=== PATIENT | male | born 1945 | race Caucasian/White ===

== ENCOUNTER 2019-01-31 12:35 | Emergency (ER) | payer MEDICARE ==
[2019-01-31] MEDS ORDERED: NS 0.9% 1000 ML** 1,000 ML IV ONE (12:38)
--- NOTE | 2019-01-31 12:42 | ED ---
Neurological HPI - HPI Summary HPI Summary: 73 year old M presenting to [facility] via private car, brought immediately from registration to H1 bed, accompanied by female family friend, and with present on phone providing information, complains of aphasia starting one hour ago at 1130 today 01/31. Last known well 1130. Patient visiting from [place]. Departed [place] around 0930 today for [place]. states patient was fine and able to speak before leaving home in [place]. Patient spoke with on phone at 1130 today and was able to speak. Arrived to friend's home in [place] shortly after 1130. Friend states patient wasn't able to answer her questions. Was aphasic. Understands what is being said to him, can laugh, able to move and ambulate. No weakness in extremities. Symptoms aggravated by nothing. Symptoms alleviated by nothing. Hx pacemaker, hx cholesterolemia per . Was on Warfin but not anymore, is on aspirin 81 mg per . No hx TIA or hx CVA per . Code Mikey 12:33. Dr. Lam at bedside 12:35. Patient to CT 12: 38. - History of Current Complaint Stated Complaint: CODE CHUA Hx Obtained From: Family/Operations Research Engineer - , Other: - friend Onset/Duration: Started hours ago - 1, Still Present Timing: Constant Aggravating: Nothing Alleviating: Nothing - Allergy/Home Medications Allergies/Adverse Reactions: Allergies Allergy/AdvReac Type Severity Reaction Status Date / Time No Known Allergies Allergy Verified 01/31/19 13:12 PMH/Surg Hx/FS Hx/Imm Hx Cardiovascular History: Reports: Hx Hypercholesterolemia, Hx Pacemaker/ICD Neurological History: Denies: Hx CVA, Hx Transient Ischemic Attacks (TIA) - Surgical History Surgery Procedure, Year, and Place: LEVEL 5 CAVEAT: Surgical hx limited d/t aphasia - Family History Family History: LEVEL 5 CAVEAT: FHx limited d/t aphasia - Social History Smoking Status (MU): Unknown if Ever Smoked Review of Systems Negative: Fever, Chills Negative: Erythema Negative: Sore Throat Negative: Chest Pain Negative: Shortness Of Breath, Cough Negative: Abdominal Pain, Vomiting, Nausea Negative: dysuria, hematuria Negative: Myalgia, Edema Negative: Rash Neurological: Negative - Dizziness, Other - aphasia Negative: Weakness All Other Systems Reviewed And Are Negative: Yes Physical Exam - Summary Physical Exam Summary: Constitutional: Well-developed, Well-nourished, Alert. (-) Distressed Skin: Warm, Dry HENT: Normocephalic; Atraumatic Eyes: Conjunctiva normal Neck: Musculoskeletal ROM normal neck. (-) JVD, (-) Stridor, (-) Tracheal deviation Cardio: Rhythm regular, rate normal, Heart sounds normal; Intact distal pulses; The pedal pulses are 2+ and symmetric. Radial pulses are 2+ and symmetric. (-) Murmur Pulmonary/Chest wall: Effort normal. (-) Respiratory distress, (-) Wheezes, (-) Rales Abd: Soft. (-) Tenderness, (-) Distension, (-) Guarding, (-) Rebound Musculoskeletal: (-) Edema Lymph: (-) Cervical adenopathy Neuro: Alert, Oriented x3, Strength normal, Cranial nerves II-XII are grossly intact. (-) Dysmetria, (-) Nystagmus, (-) Ataxia by finger to nose testing, (-) Sensory deficit. Expressively aphasic Psych: Mood and affect Normal GCS: NIH: 3 Triage Information Reviewed: Yes Vital Signs Reviewed: Yes Procedures - Sedation Patient Received Moderate/Deep Sedation with Procedure: No - Intubation Time of Intubation: 13:39 Intubation Method: orotracheal Tube Size (cm): 7.5 Medications: Succinylcholine Breath Sounds after Intubation: equal Intubation Complications: no complications Post Intubation Xray: Yes Progress/Xray Impression: video laryngoscopy - visualized through cords, ETCO2 good waveform Diagnostics - Laboratory Result Diagrams: 01/31/19 12:40 01/31/19 12:40 Lab Statement: Any lab studies that have been ordered have been reviewed, and results considered in the medical decision making process. - Radiology CXR Radiology Interpretation Completed By: Radiologist Summary of Radiographic Findings: NO ACTIVE CARDIOPULMONARY DISEASE. ED physician has reviewed. - CT Brain CT Interpretation Completed By: Radiologist Summary of CT Findings: 1. NO ACUTE INTRACRANIAL PATHOLOGY. 2. 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 3. CHRONIC SMALL VESSEL ISCHEMIC CHANGE. 4. MILD SINUS MUCOSAL INFLAMMATORY DISEASE, WITH AN AIR- FLUID LEVEL IN THE RIGHT FRONTAL SINUS. IN THE CORRECT CLINICAL SETTING, THIS MAY REPRESENT ACUTE SINUSITIS. PRELIMINARY FINDINGS WERE DISCUSSED WITH DR. LAM AT APPROXIMATELY 12:51 PM ON JANUARY 31, 2019. ED physician has reviewed this report. Head CTA CT Interpretation Completed By: Radiologist Summary of CT Findings: 1. THERE IS A LEFT FRONTAL AVM. THE NIDUS MEASURES UP TO 2.1 CM IN SIZE. THE VENOUS DRAINAGE IS PREDOMINANTLY SUPERFICIAL, WITH CALCIFIED PHLEBOLITHS NOTED IN THE NIDUS. THERE IS A 0.5 CM FLOW RELATED ANEURYSM. PNEUMONITIS MAY INVOLVE THE CORTEX INVOLVED IN SPEECH PRODUCTION. 2. ATHEROSCLEROSIS. 3. THERE IS APPROXIMATELY 30% RIGHT INTERNAL CAROTID ARTERY STENOSIS IN 50% LEFT INTERNAL CAROTID ARTERY STENOSIS BY NASCET CRITERIA. 4. 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 PRELIMINARY FINDINGS WERE DISCUSSED WITH DR. LAM AT APPROXIMATELY 1:03 PM ON JANUARY 31, 2019. ED physician has reviewed this report. - EKG 1259 Cardiac Rate: NL - 75 BPM EKG Rhythm: Sinus Rhythm NIH Scale - NIH Scale Level of Consciousness: Alert/Keenly Responsive Ask Patient the Month and His/Her Age: Both Correct Ask Pt to Open/Close Eyes and Supervising Producer/Release Non-Paretic Hand: Both Correctly Best Gaze (Only Horizontal Eye Movement): Normal Visual Field Testing: No Visual Loss Facial Paresis-Pt to Smile & Close Eyes or Grimace Symmetry: Normal/Symmetrical Motor Function - Right Arm: No Drift-Holds 10 Seconds Motor Function - Left Arm: No Drift-Holds 10 Seconds Motor Function - Right Leg: No Drift-Holds 10 Seconds Motor Function - Left Leg: No Drift-Holds 10 Seconds Limb Ataxia-Must be out of Proportion to Weakness Present: Absent Sensory (Use Pinprick to Test Arms/Legs/Trunk/Face): Normal Best Language (Describe Picture, Name Items): Mute/Global Aphasia Dysarthria (Read Several Words): Normal Extinction and Inattention: No Abnormality Total Score: 3 Re-Evaluation - Re-Evaluation First Eval Re-Evaluation Time: 12:51 Change: Unchanged Comment: Dr. Lam reports CT Brain findings Second Eval Re-Evaluation Time: 13:03 Change: Unchanged Comment: Dr. Lam reports Head CTA findings Course/Dx - Course Course Of Treatment: 73 year old M presenting via private car complains of aphasia starting one hour ago at 1130 today 01/31. Last known well 1130. Upon exam, the patient is expressively aphasic. Bloodwork without any significant abnormalities except for RBC 3.97, Hgb 13.5, Hct 30, MCV 100, MCH 34, BUN 27, creatinine 1.71, glucose 102. An EKG shows NSR [address] Brain shows, per radiologist: 1. NO ACUTE INTRACRANIAL PATHOLOGY. 2. 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 3. CHRONIC SMALL VESSEL ISCHEMIC CHANGE. 4. MILD SINUS MUCOSAL INFLAMMATORY DISEASE, WITH AN AIR-FLUID LEVEL IN THE RIGHT FRONTAL SINUS. IN THE CORRECT CLINICAL SETTING, THIS MAY REPRESENT ACUTE SINUSITIS. CXR shows, per radiologist: NO ACTIVE CARDIOPULMONARY DISEASE. Head CTA shows, per radiologist: 1. THERE IS A LEFT FRONTAL AVM. THE NIDUS MEASURES UP TO 2.1 CM IN SIZE. THE VENOUS DRAINAGE IS PREDOMINANTLY SUPERFICIAL, WITH CALCIFIED PHLEBOLITHS NOTED IN THE NIDUS. THERE IS A 0.5 CM FLOW RELATED ANEURYSM. PNEUMONITIS MAY INVOLVE THE CORTEX INVOLVED IN SPEECH PRODUCTION. 2. ATHEROSCLEROSIS. 3. THERE IS APPROXIMATELY 30% RIGHT INTERNAL CAROTID ARTERY STENOSIS IN 50% LEFT INTERNAL CAROTID ARTERY STENOSIS BY NASCET CRITERIA. 4. 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 The patient presented with acute expressive aphasia within 1 hour of time of onset of symptoms. There were no contraindications to TPA, and this decision for this medication was discussed between Dr. Padilla and the patient's . I overheard the risks and benefits being discussed with the . After the TPA bolus was given we received additional information that an AVM was present. We consulted with Dr. Derek Long at [facility] , neuro interventionalist, who recommended no additional TPA, and transfer to [place] for angiogram. This was communicated to the patient and his . Dr. Lam was primary point of contact. Patient intubated in ED. Placed on Versed drip. Patient will be transferred to [place]. Accepting physician Dr. Long, neuro interventionalist. After the initial transfer call, the patient had a seizure in the ED. He was postictal. Given the TPA administration, also a new seizure and poor responsiveness, with immediately upcoming transport, I elected to intubate him for airway protection during transport. POST INTUB CT GROSSLY NEG - Diagnoses Provider Diagnoses: Cerebral AVM, Acute CVA (cerebrovascular accident), Seizure During the Visit The Following Alert/Code Occurred: Code Chua - 1233 - Critical Care Time Critical Care Time: 30-74 min Discharge ED - Sign-Out/Discharge Documenting (check all that apply): Patient Departure - Discharge Plan Condition: Stable Disposition: TRANS HIGHER LVL OF CARE FAC Referrals: No Primary Care Phys,NOPCP [Primary Care Provider] - - Billing Disposition and Condition Condition: STABLE Disposition: Trans Higher Lvl of Care Fac - Attestation Statements Document Initiated by Scribe: Yes Documenting Scribe: Sheila Gilman Provider For Whom Scribe is Documenting (Include Credential): Yoni Pradhan MD Scribe Attestation: ISheila, scribed for Yoni Pradhan MD on 01/31/19 at 1407. Scribe Documentation Reviewed: Yes Provider Attestation: The documentation as recorded by the radhaibSheila degroot accurately reflects the service I personally performed and the decisions made by me, Yoni Pradhan MD Status of Scribe Document: Viewed
[2019-01-31] MEDS ORDERED: Alteplase* 100 MG VIAL ONE (12:47)
[2019-01-31] MEDS ORDERED: Labetalol IV* 5 MG/ML 20 ML VIAL ONE (12:47)
[2019-01-31 12:49] LABS: ABS Basophils 0.1 10^3/ul (0-0.2); ABS Eosinophils 0.3 10^3/ul (0-0.6); ABS Lymphocytes 1.8 10^3/ul (1.0-4.8); ABS Monocytes 0.6 10^3/ul (0-0.8); ABS Neutrophils 5.3 10^3/ul (1.5-7.7); Eosinophil % 3.6 %; Hematocrit 40 % (42-52); Hemoglobin 13.5 g/dL (14.0-18.0); Lymphocyte % 22.3 %; Mean Corpuscular HGB Conc 34 g/dL (31-36); Mean Corpuscular Hemoglobin 34 pg (27-31); Mean Corpuscular Volume 100 fL (80-94); Mean Platelet Volume 8.8 fL (7.4-10.4); Platelet Count 171 10^3/uL (150-450); Red Blood Count 3.97 10^6 /uL (4.18-5.48); Red Cell Distribution Width 14 % (10-15); White Blood Count 8.1 10^3/uL (3.5-10.8)
[2019-01-31 13:07] LABS: Activated Partial Thrombo Time 30.5 seconds (26.0-38.0); INR 1.06 (0.82-1.09)
[2019-01-31 13:10] LABS: Albumin 4.4 g/dL (3.2-5.2); Albumin/Globulin Ratio 1.6 (1-3); BUN/Creatinine Ratio 15.8 (8-20); Calcium 9.7 mg/dL (8.6-10.3); EGFR African American 47.5 (>60); EGFR Non-African American 39.2 (>60); Globulin 2.8 g/dL (2-4); HDL Cholesterol 50.2 mg/dL; Potassium 4.5 mmol/L (3.5-5.0); Total Bilirubin 0.6 mg/dL (0.2-1.0); Total Protein 7.2 g/dL (6.4-8.9)
[2019-01-31 13:11] LABS: Troponin I 0.01 ng/mL (<0.04)
[2019-01-31] MEDS ORDERED: Lorazepam PYXIS KEY ONE (13:31)
[2019-01-31] MEDS ORDERED: LORazepam INJ* 2 MG/ML 1 ML VIAL ONE (13:31)
[2019-01-31] MEDS ORDERED: LORazepam INJ* 2 MG/ML 1 ML VIAL IV PUSH ONE (13:32)
[2019-01-31] MEDS ORDERED: Midazolam* 1 MG/ML 10 ML VIAL (10 MG) ONE ×2 (13:41→14:08)
[2019-01-31] MEDS ORDERED: Succinylcholine* 20 MG/ML 10 ML VIAL ONE (13:44)
[2019-01-31] MEDS ORDERED: Etomidate* 2 MG/ML 20 ML VIAL (40 MG) ONE (13:44)
[2019-01-31] MEDS ORDERED: Midazolam* 1 MG/ML 5 ML VIAL (5 MG) IV SLOW PU ONE (13:47)
[2019-01-31] MEDS ORDERED: levETIRAcetam IV* 1,500 MG in NS 0.9% 100 ML* 100 ML IVPB SCH (14:00)
[2019-01-31] MEDS ORDERED: Midazolam IV for DRIP* 100 MG in NS 0.9% 100 ML* 80 ML IV SCH (14:00)
--- NOTE | 2019-01-31 15:16 | CONSULT ---
Consult Consult: Neurology Inpatient Consult Note Date of service: 01/31/2019 Reason for consult: Neurology was consulted by activating the code lilly. The history was obtained by the patient's spouse Tammi via telephone and the patient's friend's spouse Becky who was at bedside. The patient is aphasic and cannot provide any medical history. Chief complaint: Word finding difficulty History of Present Illness: Mr. 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 The patient drove alone. He arrived at his friends house a little after 11:30 AM on 01/31/2019. Tammi stated that the patient was on the phone updating her that he has arrived at 11:30 AM on 01/31/2019. This was his last known well time. Time of symptom onset was at 11:31-11:35 when Becky welcomed him and noticed that he was having trouble with his words. The patient was rushed to [facility] [place]. He arrived at [facility] at approximately 12:32 PM on 01/31/2019. He was evaluated by the stroke team immediately, and I was at bedside at 12:35 PM. The patient had expressive aphasia, and right facial droop. His NIHSS was 5. A CT head without contrast was obtained on 12:[address] head showed a left frontal extra-axial mass most consistent with meningioma. I confirmed this finding with Dr. Escobedo at 1245 PM. The inclusion and exclusion criteria were reviewed with Tammi who was on the phone the entire time during our patient evaluation. The patient has no history of recent head injury, stroke, ICH, or aortic dissection. He has never required any intracranial imaging in the past. He is NOT on anticoagulation therapy (this was confirmed multiple times). Therefore, there was no absolute contraindication to IV tPA. The risk, benefit , and alternatives were discussed in detail. I informed Volodymyr that we suspect the patient is having a stroke. The nature and purpose of tPA therapy is to dissolve the blockage that is blocking blood flow. The risks of the procedure include bleeding in the brain (6.4%), allergic reaction, resulting stroke, coma, or (2-3%). The probability of success of tPA to restore blood flow will increase the chance, 30% increased chance, of minimal or no disability from stroke within three months, and/or full recovery. Alternative to the procedure include treatment with oxygen and IV fluids. tPA decision time was at 1255. Tammi agreed to proceed with the tPA. IV tPA bolus was given at 12:59 PM (door to tPA approximately 29 minutes). After the initial CT head that showed no acute intracranial abnormality, we had obtained a STAT CTA head and neck. I was contacted by Dr. Escobedo at 1303 who informed me that there is a left frontal AVM, measuring 2.1 cm in size, and the venous drainage is predominately superficial with calcified phleboliths noted in the nidus. There is a 0.5 cm flow related aneuryms, pneumonitis may involve the cortex involved in speech production. There was also some moderate stenosis of the V4 segment of the right vertebral artery, 30% ICA stenosis, 50% left ICA stenosis. Following the results, IV tPA was discontinued and only the bolus had been given. At approximately 1328, I was updating the patient and Becky who was at bedside regarding the plan. The patient then suddenly became cyanotic, had a loud scream, deviated his head towards the right, began convulsing with figure 4 posturing with extension of the right and flexion of the left arm. The seizure lasted 45 seconds. The patient was post-ictal and none responsive. He was loaded with Ativan 2 mg and Levetiracetam 1,500 mg IV x 1. He was intubated for airway protection. We repeated a second CT of the head following the seizure to make sure he did not bleed after the small bolus of IV tPA. The CT head was unremarkable with no evidence of ICH. The patient's transfer status was changed to emergent and the flight crew were alerted. Tammi and Becky were updated by , Aiyana, and Dr. Pradhan throughout the course of evaluation and treatment. Labs, Imaging and Other Diagnostics: as per HPI IMAGING: As per HPI Past Medical History: Hypertension, dyslipidemia, pacemaker placement, CAD s/p CABG Family History: Unable to obtain due to emergent evaluation and patient is aphasic. Social History: No history of tobacco use. Medications: Not available as the patient is aphasic. He is on aspirin 81 mg. He is not on anticoagulation therapy. Allergies: No Allergies to contrast. Review of Systems: Unable to obtain due to aphasia. He did nod no to headaches. He pointed to his pacemaker to make me aware that he has one before he went in the CT bore. Physical Exam: Vitals: Vital Signs - 12 hr Temp Pulse Resp BP Pulse Ox 01/31/19 12:37 97.1 F 76 16 176/146 94 General: well nourished, well developed. Alert, cooperative, no apparent distress, appears stated age. He is aphasic. Head: normocephalic, without obvious abnormality Eyes: conjunctivae/corneas clear Neck: supple, symmetrical. No carotid bruit. No lymphadenopathy. Lungs: clear to auscultation bilaterally, non-labored CV: regular rhythm, S1, S2 normal, radial pulses palpable Extremities: normal range of motion with no cyanosis. Skin: no skin lesions or lacerations Psych: n/a Neurological examination: Mental status: awake; alert and oriented to nodding yes and no. He has severe expressive aphasia. He is nonfluent, but able to follow simple commands. He was unable to name or read sentences. Writing was not assessed. Cranial nerves: I: not tested II, III, IV, : normal confrontation B/L, Pupils midrange and reactive to light , normal consensual response; extraocular muscles are intact; no ptosis; no conjugate or asymmetrical nystagmus V 1/2/3: sensation is intact on forehead, cheeks, and jaw region VII: Mild right facial droop VIII: able to hear throughout the history process IX & X: symmetric palatal elevation XI: normal strength against resistance XII: tongue is symmetrical & midline with no atrophy or fasciculations Motor (R/L): no abnormal movements, no pronator drift. Normal bulk and tone throughout. No fasciculations. Neck extension 5. Shoulder ROM is full. Shoulder abduction 5/5. Elbow flexion 5/5, extension 5/5. Wrist flexion 5/5, extension 5/5. Finger flexion 5/5, extension 5/5, abduction 5/5. Hip flexion 5/5, abduction 5/5. Knee flexion 5/5, extension 5/5. Ankle dorsiflexion 5/5, plantarflexion 5/5. Reflexes: 1+ throughout, 0 at the ankles. Sensation is intact to light touch throughout. Coordination: normal finger to nose and rapid alternating movements. Gait & Station: did not assess.. Assessment/Recommendations: Mr. 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 The patient received 10% of IV tPA therapy ( approximately 9 mg) based on the CT head finding and his new onset deficits. Once we received new information regarding the CTA head, where the patient has a partially calficied AVM in the left frontal lobe, the IV tPA was then discontinued. Although it is a relative contraindication to give tPA in the setting of unruptured AVM, we as a team agreed that the patient's deficits are not severe enough to risk the complications of ICH. Furthermore, the AVM is in a location where it can be causing a steal phenomenon and be the cause for his deficits. Lastly, he may have had focal partial seizure causing aphasia, and then he developed secondary generalization. I discussed this case with Dr. Long, neurosurgery from , and he agreed with the plan. Stroke is still not completely excluded in this case, but given the multiple relative contraindications, we decided to not proceed with the remaining tPA therapy. Tammi was updated and agreed with this plan. 1. Aphasia and seizures due to left frontal non-ruptured AVM. Air transfer to for higher level of care and emergent neurovascular consultation. Critical care time spent: 60 minutes. Edith Tirado MD Date: 01/31/2019 Time: 15:12
[2019-01-31 15:17] VITALS: BP 112/66
== END 2019-01-31 14:55 | disposition short-term general hospital (02) ==
LOC: ED 12:35
DX: I63.9 Cerebral infarction, unspecified (principal); Q28.2 Arteriovenous malformation of cerebral vessels; R56.9 Unspecified convulsions; E78.00 Pure hypercholesterolemia, unspecified; Z95.0 Presence of cardiac pacemaker; Z79.82 Long term (current) use of aspirin; I10 Essential (primary) hypertension; E78.5 Hyperlipidemia, unspecified; I25.10 Atherosclerotic heart disease of native coronary artery without angina pectoris; Z95.1 Presence of aortocoronary bypass graft
CPT/HCPCS: 36415; 70450; 70496; 70498; 71045; 80053; 80061; 83605; 84484; 85025; 85610; 85730; 93005; 96365; 96366; 96375; 99285; J0330; J2060; J2250; J2997